=== PATIENT | male | born 1965 | race African-American/Black ===

== ENCOUNTER 2017-01-28 10:26 | Emergency (ER) | payer OTHER ==
--- NOTE | ~2017-01-28 | EKG ---
PATIENT: ZION BALDERAS UNIT #: [id number] Ventricular Rate: 81 BPM Atrial Rate: 81 BPM P-R Interval: 150 ms QRS Duration: 92 ms Q-T Interval: 392 ms QTC Calculation(Bezet): 455 ms P [place]more: 55 degrees Calculated R [place]: 88 degrees Calculated T [place]: 52 degrees Diagnosis Line: Normal sinus rhythm Diagnosis Line: Left ventricular hypertrophy Diagnosis Line: Nonspecific T wave abnormality Diagnosis Line: Abnormal ECG Diagnosis Line: No previous ECGs available Diagnosis Line: Confirmed by LUCIANA SOMMER MD ([id number]) on Diagnosis Line: 01/29/2017 6:44:55 AM INTERPRETING MD: KINSEY
--- NOTE | ~2017-01-28 | CR72 ---
[facility] A Service of [facility] & [facility] RADIOLOGY TEXT RESULTS PATIENT: ZION BALDERAS LOCATION: [facility] : 65 UNIT #: [id number] AGE: [address]: Jaun Cisneros MD SEX: M ORDER DR: [id number] [facility] [address] [place], [place] [address] [id number] E MR#: [id number] Acc #: [id number] NAME: ZION BALDERAS : 1965 SEX: M STUDY DATE/TIME: 01/28/2017 10:12 UNIT: [facility] ROOM: STUDY DESCRIPTION: CR Chest Single View Portable Attending Physician: Jaun Cisneros M.D. Ordering Physician: Jaun Cisneros M.D. Primary Care Physician: [facility]. MEDICAL IMAGING REPORT This report is preliminary unless electronic signature is present EXAM Portable chest INDICATION 51-year-old male with dizziness, elevated blood pressure today. COMPARISON No comparisons. FINDINGS The lungs are well expanded and clear. Heart size normal. Visualized osseous structures are unremarkable. IMPRESSION No active disease. Dictated by... Alexis Lobo M.D. THIS IS AN ELECTRONICALLY VERIFIED REPORT Alexis Lobo M.D. at 01/28/2017 4:42 PM KIT/noel TD: 01/28/2017 11:10 JOB #: [id number] MEDICAL IMAGING REPORT Page 1 of 1 COPY
--- NOTE | ~2017-01-28 | CT71 ---
[facility] A Service of [facility] RADIOLOGY TEXT RESULTS PATIENT: ZION BALDERAS LOCATION: [facility] : 65 UNIT #: [id number] AGE: [address]: Jaun Cisneros MD SEX: M ORDER DR: [id number] [address] [place] [id number] [facility] [place], [place] [address] [id number] E MR#: [id number] Acc #: [id number] NAME: ZION BALDERAS : 1965 SEX: M STUDY DATE/TIME: 01/28/2017 10:42 UNIT: [facility] ROOM: STUDY DESCRIPTION: CT Head Wo Contrast Attending Physician: Jaun Cisneros M.D. Ordering Physician: Jaun Cisneros M.D. Primary Care Physician: [facility], [facility]. MEDICAL IMAGING REPORT This report is preliminary unless electronic signature is present EXAM CT head without contrast, 01/28/2017. COMPARISON None HISTORY Dizziness, increased blood pressure when patient got up this a.m. Vomited. TECHNIQUE CT of the head was obtained without contrast in the axial plane, as per the protocol. This CT exam was performed with one or more of the following radiation dose reduction techniques: automatic exposure control, adjustment of mA and/or kV according to patient size, and iterative reconstruction. FINDINGS There is a focal pkqx-dykk-7-cm hypodensity noted in the right basal ganglia, close to the region of the globus pallidus. No acute intracranial hemorrhage, hydrocephalus, or midline shift. Minimal hypodensity in the periventricular white matter cannot be excluded. Paranasal sinus mucosal thickening is noted. There is medial deviation of the medial right orbital wall. Mastoid air cells are well-aerated. Orbits with the ocular structures do not demonstrate any significant abnormality. IMPRESSION 1. 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 2. Paranasal sinus mucosal thickening is seen with chronic-appearing medially deviated medial wall of the right orbit. 3. No acute abnormality. [facility] A Service of [facility] RADIOLOGY TEXT RESULTS PATIENT: ZION BALDERAS LOCATION: [facility] : 65 UNIT #: [id number] AGE: [address]: Jaun Cisneros MD SEX: M ORDER DR: Dictated by... Vikas Flowers M.D. THIS IS AN ELECTRONICALLY VERIFIED REPORT Vikas Flowers M.D. at 01/28/2017 5:23 PM CPR/boaz TD: 01/28/2017 11:46 JOB #: [id number] MEDICAL IMAGING REPORT Page 1 of 1 COPY
[~2017-01-28 10:26] MED LIST: AMOXIL500 M1 PO; FLEXERIL10 M1 PO; MOBIC PO; ULTRAM PO
[2017-01-28 10:34] LABS: URINE SOURCE CLEAN CATCH
[2017-01-28 10:36] LABS: POC - CKMB 7.1 ng/mL (0.0-7.9); POC - TROPONIN <0.05 ng/mL (<=0.05)
[2017-01-28 10:38] LABS: BASOPHIL# 0.1 X10e3 (0-0.3); BASOPHIL% 0.7 % (0-2.5); EOSINOPHIL# 0.1 X10e3 (0-0.7); EOSINOPHIL% 1.6 % (0.0-7.0); HEMATOCRIT 42.4 % (38.0-50.0); LYMPHOCYTE# 1.7 X10e3 (1.0-3.5); LYMPHOCYTE% 24.4 % (17.0-45.0); MEAN CELL VOLUME 78.1 FL (83-96); MEAN CORPUSCULAR HEMOGLOBIN 25.8 PG (28-34); MEAN PLATELET VOLUME 9.5 FL (6.5-11.5); MONOCYTE# 0.3 X10e3 (0-1.0); MONOCYTE% 4.6 % (3.0-12.0); NEUTROPHIL# 4.8 X10e3 (1.5-7.1); NEUTROPHIL% 68.7 % (40-75); PLATELET COUNT 172 X10e3 (140-420); RED BLOOD COUNT 5.42 X10e (3.90-5.60); RED CELL DISTRIBUTION WIDTH 13.8 % (11.0-15.5)
[2017-01-28 10:40] LABS: DIFF IND NO
[2017-01-28 10:45] LABS: URINE APPEARANCE CLEAR; URINE BILIRUBIN NEG (NEG); URINE BLOOD NEG (NEG); URINE COLOR YELLOW; URINE GLUCOSE NEG (NEG); URINE KETONE NEG (NEG); URINE LEUKOCYTE ESTERASE NEG (NEG); URINE NITRATE NEG (NEG); URINE PROTEIN 1+ (NEG); URINE SPECIFIC GRAVITY 1.018 (1.003-1.035); URINE UROBILINOGEN 0.2 MG/DL (NEG)
[2017-01-28 10:48] LABS: U HYALINE CASTS AUWI 0-2 /[LPF]; URBCS1 AUWI 0-2 /[HPF] (0-2); URINE BACTERIA AUWI NEG (NEGATIVE); URINE SQUAMOUS EPITHELIAL CELL NONE SEEN /[HPF]; UWBCS1 AUWI 0-2 (0-5)
[2017-01-28 10:55] LABS: CULTURE INDICATED? NO
[2017-01-28 11:06] LABS: BILIRUBIN, DIRECT 0.1 mg/dL (0.0-0.2); BILIRUBIN,INDIRECT 0.7 mg/dL (0.0-0.9); BILIRUBIN,TOTAL 0.8 mg/dL (0.2-2.0); CALCIUM SERUM 8.9 mg/dL (8.4-10.2); CREATININE SERUM 1.2 mg/dL (0.6-1.4); GLOM FILT RATE Estimated 80.7 mL/min (>60); POTASSIUM 3.9 mmol/L (3.5-5.1); PROTEIN TOTAL SERUM 7.3 g/dL (6.0-8.3)
[2017-01-28 13:14] LABS: POC - CKMB 5.9 ng/mL (0.0-7.9); POC - TROPONIN <0.05 ng/mL (<=0.05)
== END 2017-01-28 13:40 | disposition home or self-care (01) ==
LOC: CED 10:26
PROVIDERS: Emergency Medicine
DX: I10 Essential (primary) hypertension (principal); E11.9 Type 2 diabetes mellitus without complications; F17.210 Nicotine dependence, cigarettes, uncomplicated; Z91.14 Patient's other noncompliance with medication regimen; Z79.899 Other long term (current) drug therapy
CPT/HCPCS: 36415; 70450; 71010; 80048; 80076; 81003; 82553; 82947; 84484; 85025; 93005; 96361; 96374; 99284; J2405